=== PATIENT | male | born 1985 | race Caucasian/White ===

== ENCOUNTER 2017-04-07 10:32 | Day surgery (SDC) | payer OTHER ==
--- NOTE | ~2017-04-07 | EGD ---
EGD REPORT [facility] [place] [address] [address] NAME: TIGIST WREN : [birth year] [place]US : [place] [facility] [place] PAT#: [id number] AGE: 32 ADM/REG DATE : 04/07/17 MR#: [id number] REPORT SERV DATE: 04/07/17 DICTATED BY: JAIRO LU DATE: 04/07/17 REPORT STATUS : Draft TRANSCRIBED BY: [facility] DATE: 04/07/17 Endoscopy Center Patient Name: Tigist Wren Date of : 1985 Attending MD: JAIRO LU MD Procedure Date No Time: 04/07/2017 Procedure: Upper GI endoscopy Indications: Cirrhosis rule out esophageal varices Referring MD: OSKAR DOUGHERTY Medicines: Propofol per Anesthesia Complications: No immediate complications. Procedure: After obtaining informed consent, the endoscope was passed under direct vision. Throughout the procedure, the patient's blood pressure, pulse, and oxygen saturations were monitored continuously. The GIF [id number] was introduced through the mouth, and advanced to the second part of duodenum. The upper GI endoscopy was accomplished without difficulty. The patient tolerated the procedure well. Findings: The Z-line was minimally irregular. There is no endoscopic evidence of varices in the lower third of the esophagus. The entire examined stomach was normal. There is no endoscopic evidence of portal hypertension gastropathy in the entire examined stomach. The examined duodenum was normal. Impression: - Z-line irregular,. - Normal stomach. - Normal examined duodenum. Recommendation: - Repeat the upper endoscopy in 3 years for screening purposes. Procedure Code(s): --- Professional --- 21000, Esophagogastroduodenoscopy, flexible, transoral; diagnostic, including collection of specimen(s) by brushing or washing, when performed (separate procedure) Diagnosis Code(s): --- Professional --- K22.8, Other specified diseases of esophagus K74.60, Unspecified cirrhosis of liver EGD REPORT [facility] [place] [address] [place] [place] [id number] NAME: TIGIST WREN : [birth year] STATUS : [place] [facility] [place] PAT#: [id number] AGE: 32 ADM/REG DATE : 04/07/17 MR#: [id number] REPORT SERV DATE: 04/07/17 DICTATED BY: JAIRO LU. DATE: 04/07/17 REPORT STATUS : Draft TRANSCRIBED BY: [facility] DATE: 04/07/17 CPT copyright 2013 [employer]. All rights reserved. The codes documented in this report are preliminary and upon auditing coder review may be revised to meet current compliance requirements. JAIRO LU MD 04/07/2017 12:16 PM This report has been signed electronically. Number of Addenda: 0 Note Initiated On: 04/07/2017 12:08 PM Scope Withdrawal Time 0 hours 0 minutes 0 seconds [id number] [place] [id number]
[~2017-04-07 10:32] MED LIST: ADVIL PO; FISH-EPA1000 MG PO; FORTAMET1000 MG PO; MEDS; MULTIPLE VIT PO; VICTOZA18 MG/3 ML SC; VITE PO; WELLSR150 PO; ZESTRIL20 MG PO
== END 2017-04-07 23:59 | disposition home or self-care (01) ==
LOC: DMU 10:32
PROVIDERS: Internal Medicine Gastroenterology
PROC: 0DJ08ZZ Inspection of Upper Intestinal Tract, Via Natural or Artificial Opening Endoscopic (ICD-10-PCS; principal; 2017-04-07 12:00)
DX: K22.8 Other specified diseases of esophagus (principal); K74.60 Unspecified cirrhosis of liver; K76.6 Portal hypertension; G47.33 Obstructive sleep apnea (adult) (pediatric); E11.9 Type 2 diabetes mellitus without complications; R00.2 Palpitations; F32.9 Major depressive disorder, single episode, unspecified; H35.89 Other specified retinal disorders; J45.909 Unspecified asthma, uncomplicated; G62.9 Polyneuropathy, unspecified; I10 Essential (primary) hypertension; G47.30 Sleep apnea, unspecified; Z99.89 Dependence on other enabling machines and devices; Z98.890 Other specified postprocedural states; Z86.19 Personal history of other infectious and parasitic diseases; Z87.442 Personal history of urinary calculi; Z79.899 Other long term (current) drug therapy; Z79.84 Long term (current) use of oral hypoglycemic drugs; Z88.2 Allergy status to sulfonamides
CPT/HCPCS: 82962